=== PATIENT | female | born 1945 | race Caucasian/White ===

== ENCOUNTER 2024-03-20 12:59 | Outpatient (AMB) | payer BC, SELFPAY ==
--- NOTE | 2024-03-20 13:09 | MHC.OFFVIS ---
Vital Signs 03/20/24 13:10 Height 5 ft 5 in Weight 110 lb 14.28 oz BMI 18.5 BP 118/72 Blood Pressure Location Lt brachial Position Sitting Pulse 82 Pulse Source Pulse Oximeter Pulse Oximetry (%) 98 Oxygen Delivery Method Room Air Intake Visit Reasons: Raynauds Intake Note: New patient externally referred by [facility], [facility]. Presents today for Raynauds. Allergies alendronate sodium [From Fosamax] Allergy (Unknown, Unverified 02/12/24 11:43) Unknown meperidine [From Demerol] Allergy (Unknown, Unverified 02/12/24 11:43) Unknown NSAIDS (Non-Steroidal Anti-Inflamma Allergy (Unknown, Unverified 02/12/24 11:43) Unknown promethazine Allergy (Unknown, Unverified 02/12/24 11:43) Unknown risedronate sodium [From Actonel] Allergy (Unknown, Unverified 02/12/24 11:43) Unknown sulfamethoxazole [From Sulfamethoxazole-Trimethoprim] Allergy (Unknown, Unverified 02/12/24 11:43) Unknown trimethoprim [From Sulfamethoxazole-Trimethoprim] Allergy (Unknown, Unverified 02/12/24 11:43) Unknown gluten meal Allergy (Unknown, Uncoded 02/12/24 11:43) Unknown lactose Allergy (Unknown, Uncoded 02/12/24 11:43) Unknown phenergan codeine Allergy (Unknown, Uncoded 02/12/24 11:43) Unknown phenobarbitol Allergy (Unknown, Uncoded 02/12/24 11:43) Unknown Medication List - Last Reconciled 03/20/24 by Dang Copeland MD amlodipine 2.5 mg PO DAILY cholecalciferol (vitamin D3) 25 mcg PO DAILY dicyclomine 10 mg PO BID famotidine 20 mg PO DAILY losartan 25 mg PO DAILY omeprazole 20 mg PO DAILY ondansetron HCl 4 mg PO Q8H HPI Comments Details: Patient is a 78-year-old female with hypertension who presents for evaluation of Raynaud's. Patient states that she was diagnosed with Raynaud's in her 20s where she has color changes to her fingers and her toes upon exposure to cold. Her fingers turn red purple and sometimes white. Particularly in her feet she notes that she can get paresthesias as well as ulcers that forearm on the tips of the toes which make it difficult for her to wear shoes. Patient does report skin tightening mainly on her upper arm and her back. Has dry eyes dry mouth but not significant to warrant artificial tears. She does use biotin oral mouthwash. No history of parotid swelling or lymphadenopathy. No history of alopecia, oral or nasal ulcers, photosensitivity, prolonged morning stiffness, renal disease. Patient has 2 sons. Does not have a history of VTE. Does not have a history of recurrent losses. Patient able to comb her hair and reach for objects above her head without difficulty able to walk up stairs without difficulty. No history of ILD or any current symptoms of worsening shortness of breath. No known family history of autoimmune disease [facility] Medical History (Updated 03/20/24 @ 13:53 by Dang Copeland MD) Primary hypertension Cervicalgia GERD (gastroesophageal reflux disease) IBS (irritable bowel syndrome) Schatzki's ring Anxiety Surgical History (Updated 02/12/24 @ 11:31 by Brenda Rodriguez POST MANAGER) S/P tubal ligation S/P total knee replacement S/P tonsillectomy H/O lithotripsy Social History (Updated 03/20/24 @ 08:18 by Brenda Rodriguez [facility]) Alcohol intake: current Comment: 1 drink per week Patient Tobacco Use Status: Never used Tobacco Physical Exam Vital Signs: Last Vital Signs Pulse 82 03/20/24 13:10 BP 118/72 03/20/24 13:10 Pulse Ox 98 03/20/24 13:10 Oxygen Delivery Method Room Air 03/20/24 13:10 BMI result Body Mass Index 18.5 Const Other: Physical Examination Patient well appearing and in no apparent painful distress Able to rise from chair without support. ?Gait normal. Constitutional: ?Mucous membranes pink and moist patient alert and cooperative HEENT: ?Conjunctiva and sclera clear. ?Pupils equal round and reactive to light. ?No lymphadenopathy. ?Normal dentition. Mouth with decreased oral aperture Resp: ?Normal respiratory effort and able to speak in complete sentences. ?Clear to auscultation bilaterally. ?No crackles, rales, rhonchi, wheezes heard. Cards: ?Regular rate and rhythm. ?S1 and S2 heard no murmurs. ?Radial pulses intact bilaterally MSK: ?No deformity, swelling, abnormalities noted to bilateral hands. ?No evidence of synovitis. ?Able to move all joints with full range of motion, without limitation. Skin: Patient's toes turned purple during the examination. Nail fold capillaries are abnormal. No ulcer seen on exam. No skin tightening noted. Results Reviewed Results Reviewed: No results available to review. Assessment & Plan Assessment & Plan (1) Raynaud's disease: Code(s): I73.00 - Raynaud's syndrome without gangrene Category: Medical Plan: Patient with Raynaud's disease. There are some findings on exam as well as history that are concerning for secondary Raynaud's such as her abnormal capillary nail folds as well as her decreased oral aperture and the fact that she gets ulcers with her Raynaud's. Will check PEYTON, kateryna, scleroderma panel as well as ESR and CRP Discussed with patient the following treatment options 1. To change her amlodipine to nifedipine as calcium channel blockers our first-line medication for the treatment of Raynaud's. She would like me to discuss this with her nurse practitioner which I will do 2. Adding sildenafil to her medication regimen 3. Using topical nitroglycerin as needed Discussed the above options with the patient and she would prefer to do option 1 as she is going to see her PCP next week Saturday. I am okay with that we will do blood work today and see her again in 2-4 weeks at that time she would have started the nifedipine and we can discuss if she is tolerating it. Plan I spent 45 minutes reviewing the record and labs, seeing the patient, discussing the treatment plan and documenting in the medical record Orders: Orders Scleroderma 12 Panel Today I73.00 - Raynaud's syndrome without gangrene Erythrocyte Sedimentation Rate Today I73.00 - Raynaud's syndrome without gangrene PEYTON Reflex Titer and Pattern Today I73.00 - Raynaud's syndrome without gangrene Anti Extractable Nuclear Ag Today I73.00 - Raynaud's syndrome without gangrene Sjogren's Antibodies Today I73.00 - Raynaud's syndrome without gangrene C Reactive Protein Today I73.00 - Raynaud's syndrome without gangrene Coding Level of Care Code New Pt Level 4 (80649) Complex EM visit Add On G2211 Diagnoses Raynaud's disease I73.00
[2024-03-20 13:10] VITALS: BP 118/72; PULSE 82; O2SAT 98; BMI 18.5
== END 2024-03-20 13:56 | disposition home or self-care (01) ==
PROVIDERS: PCP Family Medicine; Visit Provider Student in an Organized Health Care Education/Training Program
DX: I73.00 Raynaud's syndrome without gangrene (principal)
CPT/HCPCS: 99204

== ENCOUNTER 2024-03-20 12:59 | Outpatient (REF) | payer BC, SELFPAY ==
[2024-03-20 15:05] LABS: Erythrocyte Sedimentation Rate 10 MM/HR (0-20)
[2024-03-20 15:11] LABS: C Reactive Protein 0.73 mg/dL (< or = 0.50)
[2024-03-23 14:59] LABS: Anti Nuclear Antibody Screen NEGATIVE (NEGATIVE)
[2024-03-23 20:28] LABS: Antibody to SS-A Antigen <1.0 NEG AI (<1.0 NEG); Antibody to SS-B Antigen <1.0 NEG AI (<1.0 NEG); SM/Ribonucleoprotein Ab <1.0 NEG AI (<1.0 NEG); Smith Protein <1.0 NEG AI (<1.0 NEG)
[2024-03-26 15:59] LABS: Centromere Protein A Ab <11 SI (<11); Centromere Protein B Ab <11 SI (<11); Fibrillarin Ab <11 SI (<11); PM SCL 100 Ab <11 SI (<11); PM SCL 75 Ab <11 SI (<11); RNA Polymerase III RP11 Ab <11 SI (<11); RNA Polymerase III RP155 Ab <11 SI (<11); SCL-70 Extractable Nuclear Ab <11 SI (<11); Th-To Ab <11 SI (<11); U1 SNRNP RNP 70KD <11 SI (<11); U1 SNRNP RNP A <11 SI (<11); U1 SNRNP RNP C <11 SI (<11)
== END 2024-03-20 13:00 | disposition home or self-care (01) ==
LOC: HO.LAB 12:59
PROVIDERS: PCP Family Medicine; Visit Provider Student in an Organized Health Care Education/Training Program
DX: I73.00 Raynaud's syndrome without gangrene (principal)
CPT/HCPCS: 36415; 84182; 85652; 86038; 86140; 86235

== ENCOUNTER 2024-04-21 13:21 | Outpatient (AMB) | payer BC, SELFPAY ==
[2024-04-21 13:27] VITALS: BP 120/78; PULSE 95; O2SAT 98; BMI 18.0
--- NOTE | 2024-04-21 13:27 | A.OFFVIS_ITS ---
Vital Signs 04/21/24 13:27 Height 5 ft 5 in Weight 108 lb 7.479 oz BMI 18.0 BP 120/78 Blood Pressure Location Lt brachial Position Sitting Pulse 95 Pulse Source Pulse Oximeter Pulse Oximetry (%) 98 Oxygen Delivery Method Room Air Intake Visit Reasons: Raynauds/CM Intake Note: Patient presents for follow up on Raynaud's and lab review today. She was last seen in the office by Dr. Copeland on 03/20/24. Allergies alendronate sodium [From Fosamax] Allergy (Unknown, Unverified 04/21/24 13:30) Unknown meperidine [From Demerol] Allergy (Unknown, Unverified 04/21/24 13:30) Unknown NSAIDS (Non-Steroidal Anti-Inflamma Allergy (Unknown, Unverified 04/21/24 13:30) Unknown promethazine Allergy (Unknown, Unverified 04/21/24 13:30) Unknown risedronate sodium [From Actonel] Allergy (Unknown, Unverified 04/21/24 13:30) Unknown sulfamethoxazole [From Sulfamethoxazole-Trimethoprim] Allergy (Unknown, Unverified 04/21/24 13:30) Unknown trimethoprim [From Sulfamethoxazole-Trimethoprim] Allergy (Unknown, Unverified 04/21/24 13:30) Unknown gluten meal Allergy (Unknown, Uncoded 04/21/24 13:30) Unknown lactose Allergy (Unknown, Uncoded 04/21/24 13:30) Unknown phenergan codeine Allergy (Unknown, Uncoded 04/21/24 13:30) Unknown phenobarbitol Allergy (Unknown, Uncoded 04/21/24 13:30) Unknown HPI Comments Details: Patient is a 78-year-old female with hypertension, osteoporosis and Raynaud's who presents today for follow-up. Interval History: Patient last seen 03/20/2024 with myself. At that time she was establishing care for diagnosis of Raynaud's disease complicated by ulcerations. Apart from Raynaud's she did not have any other signs or symptoms concerning for an autoimmune disease however workup was sent. Plan was to change her antihypertensive from amlodipine to nifedipine. Since then her workup has been completely normal. Other than a mildly elevated CRP but her ESR was normal. Since her last visit patient fractured her sternum after a window fell on her chest while she was cleaning it. She does admit to having osteoporosis however she is currently refusing treatment given the risk of osteonecrosis of the jaw. Otherwise from her Raynaud's perspective she is doing well. She did not change the amlodipine to nifedipine but currently has no issues. Rheumatologic History: Establish care with [facility] 03/20/2024 for the evaluation and treatment of Raynaud's disease. Her disease has been happening since her 20s and this has been associated with ulcerations. She denies any other signs or symptoms concerning for an autoimmune disease and she is currently being followed up for just primary Raynaud's. Current Rheumatology Medication(s): [facility] Medical History (Updated 04/21/24 @ 14:11 by Dang Copeland MD) Osteoporosis Primary hypertension Cervicalgia GERD (gastroesophageal reflux disease) IBS (irritable bowel syndrome) Schatzki's ring Anxiety Surgical History (Updated 02/12/24 @ 11:31 by Brenda Rodriguez CMA) S/P tubal ligation S/P total knee replacement S/P tonsillectomy H/O lithotripsy Social History (Updated 03/20/24 @ 08:18 by Brenda Rodriguez [facility]) Alcohol intake: current Comment: 1 drink per week Patient Tobacco Use Status: Never used Tobacco Review of Systems Const Details: Review of Systems Constitutional: Denies fever, chills, weight loss ENT: Denies vision changes, eye pain or eye redness, dental caries, dry mouth GI: Denies nausea, vomiting, diarrhea, abdominal pain, change in BM Pulm: Denies SOB, SMITH, hemoptysis, wheezing Cards: Denies chest pain, palpitations Skin: Denies Raynaud's, rash, nail changes, photosensitivity, MACHINE PAINT MIXER: Denies headaches, weakness, paresthesias, recurrent falls MSK: as per HPI All other systems reviewed and are unremarkable except noted above Physical Exam Vital Signs: Last Vital Signs Pulse 95 04/21/24 13:27 BP 120/78 04/21/24 13:27 Pulse Ox 98 04/21/24 13:27 Oxygen Delivery Method Room Air 04/21/24 13:27 BMI result Body Mass Index 18.0 Const Other: Physical Examination Patient well appearing and in no apparent painful distress Able to rise from chair without support. ?Gait normal. Constitutional: ?Mucous membranes pink and moist patient alert and cooperative HEENT: ?Conjunctiva and sclera clear. ?Pupils equal round and reactive to light. ?No lymphadenopathy. ?Normal dentition. Mouth with decreased oral aperture Resp: ?Normal respiratory effort and able to speak in complete sentences. ?Clear to auscultation bilaterally. ?No crackles, rales, rhonchi, wheezes heard. Cards: ?Regular rate and rhythm. ?S1 and S2 heard no murmurs. ?Radial pulses intact bilaterally MSK: ?No deformity, swelling, abnormalities noted to bilateral hands. ?No evidence of synovitis. ?Able to move all joints with full range of motion, without limitation. Skin: Patient's toes turned purple during the examination. Nail fold capillaries are abnormal. No ulcer seen on exam. No skin tightening noted. Results Reviewed Results Reviewed: Laboratory Tests 03/20/24 14:15 ESR 10 C-Reactive Protein 0.73 H PEYTON Screen NEGATIVE SS-A/Ro Antibody <1.0 NEG SS-B/La Antibody <1.0 NEG Sm (Alan) Antibody <1.0 NEG U1 snRNA A Antibody <11 U1 snRNA C Antibody <11 U1 snRNA 70kD Antibody <11 SM/STRATEGIC SOURCING MANAGER IgG Antibody <1.0 NEG Scl-70 Scleroderma Ab <11 A-PM Scleroderma 75 Ab <11 A-PM Scleroderma 100 Ab <11 Th/To STRATEGIC SOURCING MANAGER Ab <11 U3-STRATEGIC SOURCING MANAGER (Fibrillarin) Ab <11 RNA Polymerase III RP11 Ab <11 RNA Polymerase III RP155 Ab <11 Centromere B Antibody <11 Centromere Protein A Ab <11 Assessment & Plan Assessment & Plan (1) Raynaud's disease: Code(s): I73.00 - Raynaud's syndrome without gangrene Category: Medical Qualifiers: Raynaud?s-associated gangrene presence: without gangrene Qualified Code(s): I73.00 - Raynaud's syndrome without gangrene Plan: # Primary Raynaud's disease Patient with primary Raynaud's disease. No evidence of systemic autoimmune disease. Continue with her calcium channel blockers and her measures to keep her core body warm. Discussed switching her amlodipine to nifedipine. She can discuss this with her primary. (2) Osteoporosis: Code(s): M81.0 - Age-related osteoporosis without current pathological fracture Category: Medical Qualifiers: Osteoporosis type: age-related Presence of current pathological fracture: with current pathological fracture Encounter type: initial encounter Qualified Code(s): M80.00XA - Age-related osteoporosis with current pathological fracture, unspecified site, initial encounter for fracture Plan: #Osteoporosis c/b fracture Patient with sternal fracture likely secondary to her osteoporosis. Discuss treatment and patient is not willing to go on treatment because of the risk of osteonecrosis of the jaw. Discussed the risks and benefits of not going on treatment and patient is aware of her risks. Plan I spent 20 minutes reviewing the record and labs, seeing the patient, discussing the treatment plan and documenting in the medical record Coding Level of Care Code Est Pt Level 3 (65847) Complex EM visit Add On G2211 Diagnoses Raynaud's disease without gangrene I73.00 Raynaud?s-associated gangrene presence: without gangrene Age-related osteoporosis with current pathological fracture, initial encounter M80.00XA Osteoporosis type: age-related Presence of current pathological fracture: with current pathological fracture Encounter type: initial encounter
== END 2024-04-21 13:54 | disposition home or self-care (01) ==
LOC: HO.RHE 13:21
PROVIDERS: PCP Family Medicine; Visit Provider Student in an Organized Health Care Education/Training Program
DX: I73.00 Raynaud's syndrome without gangrene (principal); M80.00XA Age-related osteoporosis with current pathological fracture, unspecified site, initial encounter for fracture
CPT/HCPCS: 99213

== ENCOUNTER → 2024-04-21 13:21 | Outpatient (BNVA) | payer BC, SELFPAY | PROVIDERS: PCP Family Medicine; Visit Provider Student in an Organized Health Care Education/Training Program ==

== ENCOUNTER 2024-10-30 14:43 | Outpatient (AMB) | payer BC, SELFPAY ==
[2024-10-30 14:51] VITALS: BP 116/64; PULSE 72; O2SAT 98; BMI 18.8
--- NOTE | 2024-10-30 14:51 | MHC.OFFVIS ---
Vital Signs 10/30/24 14:51 Height 5 ft 5 in Weight 112 lb 14.027 oz BMI 18.8 BP 116/64 Blood Pressure Location Lt brachial Position Sitting Pulse 72 Pulse Source Pulse Oximeter Pulse Oximetry (%) 98 Oxygen Delivery Method Room Air Intake Visit Reasons: follow up Intake Note: Patient presents for follow up on Raynaud's, and complains of numbness in fingers. Allergies alendronate sodium [From Fosamax] Allergy (Unknown, Unverified 10/30/24 14:56) Unknown meperidine [From Demerol] Allergy (Unknown, Unverified 10/30/24 14:56) Unknown NSAIDS (Non-Steroidal Anti-Inflamma Allergy (Unknown, Unverified 10/30/24 14:56) Unknown promethazine Allergy (Unknown, Unverified 10/30/24 14:56) Unknown risedronate sodium [From Actonel] Allergy (Unknown, Unverified 10/30/24 14:56) Unknown sulfamethoxazole [From Sulfamethoxazole-Trimethoprim] Allergy (Unknown, Unverified 10/30/24 14:56) Unknown trimethoprim [From Sulfamethoxazole-Trimethoprim] Allergy (Unknown, Unverified 10/30/24 14:56) Unknown gluten meal Allergy (Unknown, Uncoded 10/30/24 14:56) Unknown lactose Allergy (Unknown, Uncoded 10/30/24 14:56) Unknown phenergan codeine Allergy (Unknown, Uncoded 10/30/24 14:56) Unknown phenobarbitol Allergy (Unknown, Uncoded 10/30/24 14:56) Unknown HPI Comments Details: Patient is a 78-year-old female with hypertension, osteoporosis and Raynaud's who presents today for follow-up. Interval History: Patient last seen 04/21/2024 with me. At that time she was following up for her Raynaud's disease and osteoporosis. She was advised to continue her calcium channel luis as there was no evidence of systemic autoimmune disease. Patient not willing to go on osteoporotic treatment. Rheumatologic History: Establish care with [facility] 03/20/2024 for the evaluation and treatment of Raynaud's disease. Her disease has been happening since her 20s and this has been associated with ulcerations. She denies any other signs or symptoms concerning for an autoimmune disease and she is currently being followed up for just primary Raynaud's. Raynaud's disease complicated by ulcerations. Apart from Raynaud's she did not have any other signs or symptoms concerning for an autoimmune disease however workup was sent. Negative work up Current Rheumatology Medication(s): [facility] Medical History (Updated 04/21/24 @ 14:11 by Dang Copeland MD) Osteoporosis Primary hypertension Cervicalgia GERD (gastroesophageal reflux disease) IBS (irritable bowel syndrome) Schatzki's ring Anxiety Surgical History (Updated 02/12/24 @ 11:31 by Brenda Rodriguez CMA) S/P tubal ligation S/P total knee replacement S/P tonsillectomy H/O lithotripsy Social History (Updated 03/20/24 @ 08:18 by Brenda Rodriguez CMA) Alcohol intake: current Comment: 1 drink per week Patient Tobacco Use Status: Never used Tobacco Review of Systems Const Details: Review of Systems Constitutional: Denies fever, chills, weight loss ENT: Denies vision changes, eye pain or eye redness, dental caries, dry mouth GI: Denies nausea, vomiting, diarrhea, abdominal pain, change in BM Pulm: Denies SOB, SMITH, hemoptysis, wheezing Cards: Denies chest pain, palpitations Skin: Denies Raynaud's, rash, nail changes, photosensitivity, PASTE UP ARTIST APPRENTICE: Denies headaches, weakness, paresthesias, recurrent falls MSK: as per HPI All other systems reviewed and are unremarkable except noted above Physical Exam Vital Signs: BMI result Body Mass Index 18.8 Vital signs reviewed Physical Examination CONSTITUITIONAL Patient alert and cooperative. Well appearing and in no apparent painful distress HEENT Conjunctiva and sclera clear. ?Pupils equal round and reactive to light. ?No lymphadenopathy. ? CHEST/RESPIRATORY SYSTEM Normal respiratory effort and able to speak in complete sentences. ?Clear to auscultation bilaterally. ?No crackles, rales, rhonchi, wheezes heard. CARDIAC SYSTEM Regular rate and rhythm. ?S1 and S2 heard no murmurs. ?Radial pulses intact bilaterally MSK Hands: ?Able to make a fist. No synovitis noted to the MCPs, PIPs or DIPs. ?No tenderness to palpation of these joints. No deformities noted. ? Wrists: ?Full range of motion at the wrists without pain. ?No tenderness to palpation or synovitis noted to the wrists. Elbows: Full range of motion without pain. No tenderness, weakness, swelling, increased warmth or erythema. Shoulders: Full range of active range of motion without pain. No tenderness, weakness, swelling, increased warmth or erythema. Hips: Full range of motion without pain. Hip bursa: No tenderness to palpation Knees: ?Full range of motion. ?No tenderness, swelling, increased warmth or erythema.?No effusion or crepitations Ankles: Full range of motion. ?No tenderness, swelling, increased warmth or erythema.? Feet: ?Negative squeeze test. ?No tenderness to palpation or swelling of the MTPs. Tender points:?No tenderness to palpation of the bilateral trapezius, supraspinatus, greater trochanters, anterior costochondral junctions, bilateral gluteal areas, bilateral suboccipital muscle insertions SKIN Abnromal nail fold capillaroscopy Results Reviewed Results Reviewed: Laboratory Tests 03/20/24 14:15 ESR 10 C-Reactive Protein 0.73 H PEYTON Screen NEGATIVE SS-A/Ro Antibody <1.0 NEG SS-B/La Antibody <1.0 NEG Sm (Alan) Antibody <1.0 NEG U1 snRNA A Antibody <11 U1 snRNA C Antibody <11 U1 snRNA 70kD Antibody <11 SM/FOAM CHARGER IgG Antibody <1.0 NEG Scl-70 Scleroderma Ab <11 A-PM Scleroderma 75 Ab <11 A-PM Scleroderma 100 Ab <11 Th/To FOAM CHARGER Ab <11 U3-FOAM CHARGER (Fibrillarin) Ab <11 RNA Polymerase III RP11 Ab <11 RNA Polymerase III RP155 Ab <11 Centromere B Antibody <11 Centromere Protein A Ab <11 Assessment & Plan Assessment & Plan (1) Raynaud's disease: Code(s): I73.00 - Raynaud's syndrome without gangrene Category: Medical Qualifiers: Raynaud?s-associated gangrene presence: without gangrene Qualified Code(s): I73.00 - Raynaud's syndrome without gangrene Plan: # Primary Raynaud's disease Patient is a 78 y.o. female with Raynaud's disease complicated by ulcers. Had a better winter this year without ulcers. Continues to use amlodipine. No evidence of systemic autoimmune disease Plan - Continue to monitor - Continue CCBs for HTN - RTC 1 year or sooner (2) Osteoporosis: Code(s): M81.0 - Age-related osteoporosis without current pathological fracture Category: Medical Qualifiers: Osteoporosis type: age-related Presence of current pathological fracture: with current pathological fracture Encounter type: initial encounter Qualified Code(s): M80.00XA - Age-related osteoporosis with current pathological fracture, unspecified site, initial encounter for fracture Plan: #Osteoporosis c/b fracture Patient with sternal fracture likely secondary to her osteoporosis. Discuss treatment and patient is not willing to go on treatment because of the risk of osteonecrosis of the jaw. Discussed the risks and benefits of not going on treatment and patient is aware of her risks. Because she is not willing to undergo treatment I do not think surveillance with bone density is warranted Plan I spent 20 minutes reviewing the record and labs, seeing the patient, discussing the treatment plan and documenting in the medical record Coding Level of Care Code Est Pt Level 3 (80531) Diagnoses Raynaud's disease without gangrene I73.00 Raynaud?s-associated gangrene presence: without gangrene Age-related osteoporosis with current pathological fracture, initial encounter M80.00XA Osteoporosis type: age-related Presence of current pathological fracture: with current pathological fracture Encounter type: initial encounter
== END 2024-10-30 15:14 | disposition home or self-care (01) ==
LOC: HO.RHE 14:44
PROVIDERS: PCP Family Medicine; Visit Provider Student in an Organized Health Care Education/Training Program
DX: I73.00 Raynaud's syndrome without gangrene (principal); M80.00XA Age-related osteoporosis with current pathological fracture, unspecified site, initial encounter for fracture
CPT/HCPCS: 99213

== ENCOUNTER → 2024-10-30 14:43 | Outpatient (BNVA) | payer BC, SELFPAY | PROVIDERS: PCP Family Medicine; Visit Provider Student in an Organized Health Care Education/Training Program ==